=== PATIENT | male | born 2000 | race Caucasian/White ===

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

== ENCOUNTER 2018-05-14 02:22 | Emergency (ER) | payer BC ==
[2018-05-14] MEDS: METHYLPREDNISOLONE 125 MG INJ IM (02:38)
[2018-05-14] MEDS: IPRATROPIUM (NEB) 0.5 MG/2.5 ML AMP INH (02:44)
[2018-05-14] MEDS: ALBUTEROL 0.5% (NEB) 2.5 MG/0.5 ML AMP INH (02:44)
== END 2018-05-14 04:23 | disposition home or self-care (01) ==
LOC: FTE 02:22
DX: J45.901 Unspecified asthma with (acute) exacerbation (principal)
CPT/HCPCS: 94644; 96372; 99284-25

== ENCOUNTER 2018-05-21 06:46 | Emergency (ER) | payer BC ==
[2018-05-21] MEDS: KETOROLAC 30 MG INJ IM (07:18)
== END 2018-05-21 07:43 | disposition home or self-care (01) ==
LOC: FTE 06:46
DX: R10.9 Unspecified abdominal pain (principal); J45.909 Unspecified asthma, uncomplicated
CPT/HCPCS: 96372; 99284-25